=== PATIENT | female | born 1955 | race Caucasian/White ===

== ENCOUNTER 2017-06-09 05:58 | Day surgery (SDC) | payer BC, OTHER ==
--- NOTE | 2017-06-05 09:38 | PREOPHP ---
DATE OF ADMISSION: 06/09/2017 The patient to have surgery with Dr. Shazia Guerrier 06/09/2017. REQUESTING PHYSICIAN: Dr. Shazia Guerrier. REASON FOR CONSULTATION: Medical evaluation and clearance of a 61-year-old woman about to undergo surgery. Thank you, Dr. Guerrier, for allowing us to participate in the care of this patient. HISTORY OF PRESENT ILLNESS: Danelle Hamm, a 61-year-old woman, issues with diminishing vision secondary to cataracts, is currently being admitted for correction of the above. PAST MEDICAL AND SURGICAL HISTORY: She has had no medical hospitalizations other than for pregnancies, has had no surgeries, no broken bones. MEDICATIONS: She is currently taking the followin. Insulin 70/30, taking 30 units a.m. and 30 units p.m. 2. Baby aspirin 81 mg a day. 3. Amlodipine 10 mg daily. 4. Atenolol 50 mg a day. 5. Benazepril 40 mg a day. 6. Metformin 1000mg b.i.d 7. Glyxamb 10/5,mg one daily MEDICATIONS ALLERGIES: None. SOCIAL HISTORY: The patient is , has 4 children, 2 grandchildren, all in good health. She does not smoke or drink alcohol, does drink coffee. Has no difficulty sleeping at night. FAMILY HISTORY: Both parents are . Father in his 70s of liver tumor. Mother at age 32, childbirth. Six siblings are in good health. Family history of hypertension and possibly stroke. She knows of no diabetes, heart or cancer. REVIEW OF SYSTEMS HEENT: Denies any headaches. Has diminished vision secondary to cataracts. CARDIORESPIRATORY: Denies any chest pain or shortness of breath. GASTROINTESTINAL: No melena or hematemesis. GENITOURINARY: No urgency, frequency. GYNECOLOGIC: Post-menopause. MUSCULOSKELETAL: Positive for arthritis in the right knee. NEUROPSYCHIATRIC: Unremarkable. GENERAL HEALTH: As above. PHYSICAL EXAMINATION: VITAL SIGNS: The patient's blood pressure was 160/80, pulse was 89 and regular , respirations were 18, temperature 98.5, weight 140 pounds. GENERAL: The patient was noted to be a well-developed, well-nourished female, alert and cooperative, in no apparent acute distress, oriented to time, place, and person. HEAD, EARS, EYES, NOSE AND THROAT: Head was atraumatic. Eyes: Pupils were equal, reactive to light and accommodation. Fundi were poorly visualized. Tympanic membranes were unremarkable. Nose was negative. Mouth was unremarkable. Fair oral hygiene was present. NECK: Supple without any rigidity. Trachea was midline. Thyroid was within normal limits. Neck veins were flat. Carotid pulses were equal. No bruits were heard. BACK: Exam was unremarkable. CHEST: Symmetrical. BREASTS AND AXILLARY: Did not reveal any obvious masses. LUNGS: Clear to percussion and auscultation. HEART: PMI is fifth intercostal space at the midclavicular line. Regular sinus rhythm was noted. No significant murmurs, rubs, or gallops being elicited. ABDOMEN: Soft, good bowel sounds were noted. No significant organomegaly, masses, or tenderness. GENITALIA: Normal and pelvirectal exam per PCP up to date. EXTREMITIES: Did not reveal any clubbing, edema or cyanosis. Peripheral pulses were physiologic. SKIN: Moist and warm without any eruptions. No gross lymphadenopathy was noted. NEUROLOGIC: Grossly intact. IMPRESSION: 1. Cataract, right greater than left. 2. Diabetes mellitus type 2. 3. Hypertension. 4. Hyperlipidemia. 5. Menopausal syndrome. 6. Stable health. LABORATORY AND OTHER DATA: Revealed the following: The patient's chemistry panel including electrolytes, creatinine, calcium and liver function tests were normal. Patient's uric acid was elevated at 10.5, glucose was 232, BUN was 27. Serum iron was low, TSH, free T4 basically normal. Hemoglobin A1c was 7.8. Random glucose, the patient had just eaten, was 232; however, her hemoglobin A1c bespeaks relatively fair control for diabetes. CBC, sed rate, UA, PT and PTT were basically unremarkable. There was trace packed blood and some protein spillage in her urine. The patient's EKG revealed a sinus tachycardia, otherwise normal and her x-ray was within normal limits. DISCUSSION: Dr. Guerrier, I see no contraindication in this patient undergoing current proposed surgery under desired form of anesthesia and I feel she is a suitable candidate at this particular point in time. She will be n.p.o. prior to her surgery, and glucose at that point should be well below 200. Thank you again, Dr. Guerrier, for allowing us to participate in care of this patient. Dictated By: ALEXEI ADAMSON MD SS/NTS Conf#: [id number] DID#: [id number] CC: SHAZIA GUERRIER MD;*EndCC* MTDD
[~2017-06-09] VITALS: Ht 152.4 cm; Wt 64.0 kg
[2017-06-09] MEDS ORDERED: DEXAMETHASONE 4 MG/ML 1 ML INJ ONE (06:23)
[2017-06-09] MEDS ORDERED: GENTAMICIN 80 MG INJ ONE (06:23)
[2017-06-09] MEDS ORDERED: CEFAZOLIN 1 GM INJ ONE (06:23)
[2017-06-09] MEDS ORDERED: LIDOCAINE 4% (MPF) 5 ML INJ ONE (06:23)
[2017-06-09] MEDS ORDERED: CARBACHOL 0.01% 1.5 ML OPH INJ ONE (06:23)
[2017-06-09] MEDS ORDERED: EPINEPHrine 1 MG INJ ONE (06:24)
[2017-06-09] MEDS ORDERED: MOXIFLOXACIN 0.5% 3 ML OPH OPER SCH (07:00)
[2017-06-09] MEDS ORDERED: CYCLOPENTOLATE/PHENYLEPH 2 ML OPH OPER SCH (07:00)
[2017-06-09] MEDS ORDERED: BROMFENAC SODIUM 1.7 ML OPH DROP OPER SCH (07:00)
[2017-06-09] MEDS ORDERED: TROPICAMIDE 1% 3 ML OPH OPER SCH (07:00)
[2017-06-09] MEDS ORDERED: SOD CHLORIDE 0.9% 1,000 ML IV SCH (07:00)
[2017-06-09 07:08] VITALS: BP 158/64; PULSE 86; RESP 17
[2017-06-09] MEDS ORDERED: CARBACHOL 0.01% 1.5 ML OPH INJ INJ ONE (07:15)
[2017-06-09] MEDS ORDERED: CEFAZOLIN 1 GM INJ INJ ONE (07:15)
[2017-06-09] MEDS ORDERED: DEXAMETHASONE 4 MG/ML 1 ML INJ INJ ONE (07:15)
[2017-06-09 08:06] VITALS: BP 149/63; PULSE 76; RESP 16
[2017-06-09 08:11] VITALS: BP 155/81; PULSE 80; RESP 24
[2017-06-09 08:16] VITALS: BP 147/62; PULSE 80; RESP 24
[2017-06-09 08:20] VITALS: BP 154/72; PULSE 75; RESP 17
[2017-06-09] MEDS ORDERED: ONDANSETRON 4 MG INJ IV PRN (08:30)
--- NOTE | 2017-06-09 08:32 | SIPON ---
Date/Time of Note Date/Time of Note DATE: 06/09/17 TIME: 08:30 Operative Report Preoperative Diagnosis cataract od Postoperative Diagnosis same Operation/Procedure Performed cataract lens impant surgery od Surgeon see signature line assistant brand manager none Anesthesia: MAC Estimated blood loss: none Transfusion Required none Specimen none Grafts/Implants posterior chamber lens implant Complications none SHAZIA GUERRIER MD Jun 09, 2017 08:32
--- NOTE | 2017-06-09 08:57 | OPR ---
DATE OF OPERATION: 06/09/2017 PREOPERATIVE DIAGNOSIS: Cataract, right eye. POSTOPERATIVE DIAGNOSIS: Cataract, right eye. OPERATION PERFORMED: Cataract extraction with lens implant, right eye. SURGEON: Shazia Noyola. ANESTHESIA: Toya Ravi CRNA. ANESTHESIA: Local standby. OPERATION: Phacoemulsification with posterior chamber intraocular lens implant , right eye. PROCEDURE: The patient was brought to the operating room and placed on the table with an IV in place and the patient attached to an monitoring engineer. Oxygen was given via face mask. After some intravenous sedation was administered, local anesthesia was given using Xylocaine 2% with epinephrine, mixed with Marcaine 0.5%. This was given in a lid block and retrobulbar injection. The patient was then prepped and draped in the usual sterile manner. A wire lid speculum was inserted between the lids of the right eye. A Superblade was used to enter the anterior chamber at the corneoscleral limbus at the 10:30 o'clock position. A separate incision was made using a 3.0-mm keratome which entered the corneoscleral junction at the 12 o'clock position. Through this 3-mm opening, an irrigating cystotome was introduced into the anterior chamber. The chamber was filled with Viscoat and an anterior capsulotomy was performed. Balanced salt solution was then used for hydrodissection of the lens. A phacoemulsification handpiece was then brought into the field and introduced into the anterior chamber. The lens nucleus was emulsified using a deep groove and cracking the nucleus into quadrants. Following this, each quadrant was aspirated and emulsified at the pupillary margin. After this was completed, the irrigation/aspiration handpiece was brought to the field, introduced into the posterior chamber, and the lens cortical material was removed. When this was completed, additional Viscoat was injected into the anterior and posterior chambers. The 3-mm opening had its internal lips enlarged, and then the posterior chamber intraocular lens measuring 21.0 diopters ([employer] Model LI61AO) was then injected into the posterior chamber using the lens injector system. After the leading haptic was introduced into the capsular bag and the lens optic was present in the center of the eye, the injector was removed and the trailing haptic was grasped with non-toothed forceps and introduced into the capsular fold superiorly. A Sinskey hook was then used to rotate the intraocular lens so that the lips were oriented in the horizontal meridian. One 10-0 nylon suture was placed across the wound. Prior to tying, the irrigation/aspiration handpiece was reintroduced into the anterior chamber to remove the Viscoat. Miochol was instilled to constrict the pupil, and then the 10-0 nylon suture was tied. The ends were cut short and then the knot was buried. Then, 0.5 mL of dexamethasone and 0.5 mL of Ancef were injected into the sub- [place]on space in the inferior fornix. Ciloxan drops were then placed on the surface of the eye. The speculum was removed and a patch was applied. The patient then left the operating room in satisfactory condition. Dictated By: SHAZIA CAIN/TIFFANY Conf#: [id number] DID#: [id number]
== END 2017-06-09 08:45 | disposition home or self-care (01) ==
LOC: SDS 05:58 → EDBD 12:30
PROVIDERS: ATTEND Ophthalmology
DX: H25.11 Age-related nuclear cataract, right eye (principal); I10 Essential (primary) hypertension; E11.8 Type 2 diabetes mellitus with unspecified complications; E78.5 Hyperlipidemia, unspecified; Z78.0 Asymptomatic menopausal state; Z82.49 Family history of ischemic heart disease and other diseases of the circulatory system; Z79.84 Long term (current) use of oral hypoglycemic drugs; Z79.82 Long term (current) use of aspirin; Z79.4 Long term (current) use of insulin
CPT/HCPCS: 66984; 82962; J0171; J0690; J1100; J1580; V2632